=== PATIENT | female | born 1985 | race African-American/Black ===

== ENCOUNTER 2016-12-22 15:40 | Emergency (ER) | payer OTHER ==
[2016-12-22 15:45] VITALS: BP 122/70; BMI 32.9
== END 2016-12-22 22:09 | disposition left against medical advice (07) ==
LOC: ER 15:58
DX: G43.909 Migraine, unspecified, not intractable, without status migrainosus (principal)
CPT/HCPCS: 99281

== ENCOUNTER 2017-01-02 18:43 | Emergency (ER) | payer OTHER ==
[2017-01-02 18:56] VITALS: BP 118/66; BMI 34.7
[2017-01-02] MEDS ORDERED: DEMEROL INJ IM ONE (19:46)
[2017-01-02] MEDS ORDERED: PHENERGAN INJ 25 MG IM ONE (19:46)
--- NOTE | 2017-01-02 19:48 | DR.GENAD ---
HPI - PCP Primary Care Physician: chago - HPI Comment HPI Comment: HAVE HEADACHE DIADNOSE MIGRAINE. GOT WORSE TODAY. NUMBNESS HANDS AND LOWER EXTREMITY WEAKNESS REPORTED. NO FEVER. DENIES SINUS CONGESTION. - Complaint/Symptoms Chief Complaint Doctors Comments: HEADACHE WITH NAUSEA AND WEAKNESS. 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 negative: Chills, Fever Eyes: Photophobia. negative: Eye Pain, Discharge ENTM: No Symptoms Reported. negative: Ear Pain, Nose Discharge, Nose Congestion , Throat Pain Respiratoy: No Symptoms Reported. negative: Productive Cough, Non-Productive Cough, Short of Breath, Wheezing, Hemoptysis Cardiovascular: No Symptoms Reported. negative: Chest Pain Gastrointestinal/Abdominal: Nausea. negative: Abdominal Pain, Diarrhea, Vomiting Genitourinary: No Symptoms Reported. negative: Dysuria, Frequency, Hematuria Neurological: Headache, Numbness (HANDS), Weakness, Dizziness Musculoskeletal: Muscle Pain Integumentary: No Symptoms Reported Hematologic/Lymphatic: No Symptoms Reported Endocrine: No Symptoms Reported All Other Systems: Reviewed and Negative PE - Vital Signs Vitals: Temperature 99.1 F Pulse Rate 97 Respiratory Rate 18 Blood Pressure [Right Arm] 115/75 Blood Pressure 118/66 O2 Sat by Pulse Oximetry 100 - General Limitations: No Limitations General Appearance: Alert - Head Head Exam: Normal Inspection - Eyes Eye exam: Normal Appearance - ENT ENT Exam: Normal External Ear Exam External Ear Exam: Normal External Inspection TM/Canal Exam: Bilateral Normal Nose Exam: Normal Nose Exam Mouth Exam: Normal Inspection Throat Exam: Normal Inspection - Neck Neck Exam: Normal Inspection - Chest Chest Inspection: Symmetric Chest Wall Rise - Respiratory Respiratory Exam: Normal Lung Sounds Bilat Respiratory Exam: Bilateral Clear to Auscultation - Cardiovascular Cardiovascular Exam: Regular Rate, Normal Rhythm, Normal Heart Sounds - Abdominal Exam Abdominal Exam: Normal Bowel Sounds, Soft. negative: Tenderness - Extremities Extremities Exam: Normal Inspection - Back Back Exam: Normal Inspection - Neurologic Neurological Exam: Alert, Oriented X3, CN II-XII Intact, Reflexes Normal. negative: Motor Sensory Deficit - Psychiatric Psychiatric Exam: Normal Affect, Normal Mood - Skin Skin Exam: Normal Color MDM - Additional Information Additional Information Obtained From: Family - Differential Diagnosis Differential Diagnosis: MIGRAINE HEADACHE, CVA, SINUSITIS Course - Treatment Treatment: SEE ORDERS. MED FOR PAIN IN ED. SLIGHT IMPROVEMENT OF HEADACHE. - Education/Counseling Education/Counseling: Patient, Family, Education Educated On: Treatment, Diagnosis, Needs for Follow Up ROR - Labs Reviewed Laboratory Results Reviewed?: Yes Result Diagrams: 01/02/17 19:50 01/02/17 19:50 Laboratory: WBC 8.3 X10^3/uL (3.6-10.0) 01/02/17 19:50 RBC 4.90 X10^6/uL (3.5-5.4) 01/02/17 19:50 Hgb 14.7 g/dL (12.0-16.0) 01/02/17 19:50 Hct 42.8 % (36.0-47.0) 01/02/17 19:50 MCV 87.3 fL (80.0-100.0) 01/02/17 19:50 MCH 29.9 pg (27.0-34.0) 01/02/17 19:50 MCHC 34.2 g/dL (33.0-35.0) 01/02/17 19:50 RDW 13.7 % (11.6-16.5) 01/02/17 19:50 Plt Count 210 X10^3/uL (150.0-450.0) 01/02/17 19:50 MPV 8.6 fL (7.4-11.0) 01/02/17 19:50 Neut % 66.2 % (42.0-75.0) 01/02/17 19:50 Lymph % 23.4 % (21.0-51.0) 01/02/17 19:50 [place] % 6.9 % (0.0-13.0) 01/02/17 19:50 Eos % 3.1 % (0.9-2.9) H 01/02/17 19:50 Baso % 0.4 % (0.2-1.0) 01/02/17 19:50 Neut # 5.5 x10^3/uL (2.2-4.8) H 01/02/17 19:50 Lymph # 1.9 X10^3/uL (1.3-2.9) 01/02/17 19:50 [place] # 0.6 x10^3/uL (0.3-0.8) 01/02/17 19:50 Eos # 0.3 x10^3/uL (0.0-0.2) H 01/02/17 19:50 Baso # 0.0 X10^3/uL (0.0-0.1) 01/02/17 19:50 Absolute Nucleated RBC 0.0 /100WBC 01/02/17 19:50 Sodium 140 mmol/L (136-145) 01/02/17 19:50 Corrected Sodium TNP 01/02/17 19:50 Potassium 3.6 mmol/L (3.5-5.1) 01/02/17 19:50 Chloride 103 mmol/L (98-107) 01/02/17 19:50 Carbon Dioxide 28.6 mmol/L (21-32) 01/02/17 19:50 BUN 12 mg/dL (7-18) 01/02/17 19:50 Creatinine 1.04 mg/dL (0.55-1.02) H 01/02/17 19:50 Est GFR (MDRD) Af Amer > 60 (>60) 01/02/17 19:50 Est GFR (MDRD) Non-Af > 60 (>60) 01/02/17 19:50 Glucose 95 mg/dL (65-99) 01/02/17 19:50 Calcium 9.5 mg/dL (8.5-10.1) 01/02/17 19:50 Corrected Calcium TNP 01/02/17 19:50 Total Bilirubin 0.20 mg/dL (0.2-1.0) 01/02/17 19:50 AST 14 Units/L (15-37) L 01/02/17 19:50 ALT 20 Units/L (12-78) 01/02/17 19:50 Alkaline Phosphatase 85 Units/L (46-116) 01/02/17 19:50 Total Protein 8.7 g/dL (6.4-8.2) H 01/02/17 19:50 Albumin 4.0 g/dL (3.4-5.0) 01/02/17 19:50 Globulin 4.7 g/dL (2.5-4.5) H 01/02/17 19:50 Albumin/Globulin Ratio 0.9 Ratio (1.1-2.1) L 01/02/17 19:50 - XRAY XRAY Interpreted by: Radiologist XRAY Findings: REPORT DISCUSS WITH PATIENT. - Diagnosis Discharge Problem: Migraine headache Qualifiers: Migraine type: unspecified Status migrainosus presence: with status migrainosus Intractability: intractable Qualified Code(s): G43.911 - Migraine, unspecified, intractable, with status migrainosus Sinusitis Qualifiers: Sinusitis location: ethmoidal Chronicity: acute Recurrence: not specified as recurrent Qualified Code(s): J01.20 - Acute ethmoidal sinusitis, unspecified - Discharge Plan Disposition: 01 HOME, SELF-CARE Condition: Stable Prescriptions: Amoxicillin [Amoxil 875 mg] 875 mg PO BID #20 tab [id number] [Fioricet Tab] 1 tab PO Q8H PRN #20 tab PRN Reason: Migraine Headache Promethazine HCl [PHENERGAN TAB 25 MG *] 25 mg PO Q8H PRN #12 tab PRN Reason: Nausea/Vomiting - Follow ups/Referrals Follow ups/Referrals: ESVIN CHERRY [Primary Care Provider] - 3 days - Instructions Instructions: Migraine Headache, Sinusitis, Adult Additional Instructions: RETURN TO ED IF WORSE.
[2017-01-02] MEDS ORDERED: DEMEROL INJ ONE (19:53)
[2017-01-02] MEDS ORDERED: PHENERGAN INJ 25 MG ONE (19:53)
[2017-01-02 20:00] LABS: BASOPHILS % (AUTO) 0.4 % (0.2-1.0); EOSINOPHILS # (AUTO) 0.3 x10^3/uL (0.0-0.2); EOSINOPHILS % (AUTO) 3.1 % (0.9-2.9); HEMATOCRIT 42.8 % (36.0-47.0); HEMOGLOBIN 14.7 g/dL (12.0-16.0); LYMPHOCYTES # (AUTO) 1.9 X10^3/uL (1.3-2.9); LYMPHOCYTES % (AUTO) 23.4 % (21.0-51.0); MEAN CORPUSCULAR HEMOGLOBIN 29.9 pg (27.0-34.0); MEAN CORPUSCULAR HGB CONC 34.2 g/dL (33.0-35.0); MEAN CORPUSCULAR VOLUME 87.3 fL (80.0-100.0); MEAN PLATELET VOLUME 8.6 fL (7.4-11.0); MONOCYTES # (AUTO) 0.6 x10^3/uL (0.3-0.8); MONOCYTES % (AUTO) 6.9 % (0.0-13.0); NEUTROPHILS # (AUTO) 5.5 x10^3/uL (2.2-4.8); NEUTROPHILS % (AUTO) 66.2 % (42.0-75.0); PLATELET COUNT 210 X10^3/uL (150.0-450.0); RED CELL DISTRIBUTION WIDTH 13.7 % (11.6-16.5); WHITE BLOOD COUNT 8.3 X10^3/uL (3.6-10.0)
[2017-01-02 20:16] LABS: ALANINE AMINOTRANSFERASE 20 Units/L (12-78); ALKALINE PHOSPHATASE 85 Units/L (46-116); ASPARTATE AMINO TRANSFERASE 14 Units/L (15-37); BLOOD UREA NITROGEN 12 mg/dL (7-18); CALCIUM 9.5 mg/dL (8.5-10.1); CARBON DIOXIDE 28.6 mmol/L (21-32); CHLORIDE 103 mmol/L (98-107); CREATININE 1.04 mg/dL (0.55-1.02); GLUCOSE 95 mg/dL (65-99); SODIUM 140 mmol/L (136-145); TOTAL PROTEIN 8.7 g/dL (6.4-8.2); eGFR BLACK RACES > 60 (>60); eGFR NON BLACK RACES > 60 (>60)
--- NOTE | 2017-01-02 20:45 | CT ---
HISTORY: Headache x2 months Study: CT brain without contrast Comparison: None Technique: Multiple axial images of the brain were obtained from the skull base to the vertex witho ut administration of IV contrast. AEC was utilized. Findings: No acute intraparenchymal hemorrhage or mass can be identified. No extra-axial fluid collections ar e seen. No alteration in the attenuation of the brain parenchyma can be identified to suggest acute or subacute ischemic change. The ventricular system is symmetric and nondilated. There is mild to moderate chronic ethmoid sinusitis. IMPRESSION: No acute intracranial process can be identified. Mild to moderate chronic ethmoid sinusitis Reported By:
== END 2017-01-02 21:11 | disposition home or self-care (01) ==
LOC: ER 18:46
DX: G43.911 Migraine, unspecified, intractable, with status migrainosus (principal); J01.80 Other acute sinusitis
CPT/HCPCS: 36415; 70450; 80053; 85025; 96372; 99283; J2175; J2550

== ENCOUNTER 2017-06-17 09:07 | Emergency (ER) | payer OTHER ==
[2017-06-17 09:14] VITALS: BP 114/70; BMI 34.9
[2017-06-17] MEDS ORDERED: TORADOL 60 MG VIAL IM ONE (09:59)
--- NOTE | 2017-06-17 10:06 | DR.GENAD ---
HPI - PCP Primary Care Physician: DR. CHERRY - Complaint/Symptoms Chief Complaint Doctors Comments: Patient states she has been having pain in her knees, ankle and feet for several weeks. 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 She was told she had arthritis and she does not know the type of arthritis they said she had. They told her to take Alieve and Motrin. states she has been taking Motrin 800mg without improvement. she denies chest pain or SOB. States she is a patient of Dr. Cherry but cannot see him until after the holidays because she is in training and cannot get away. Chief Complaint:: PATIENT STATED THAT SHE IS HAVING JOINT PAIN. PATIENT STATED THAT THIS HAS BEEN GOING ON FOR A COUPLE OF WEEKS IN THE KNEES AND ANKLE. 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 - Family History History of Family Medical Conditions: No - Social History Does patient currently use any type of tobacco product: No Have you used tobacco products in the last 12 months: No Type of Tobacco Use: None Does any household member use tobacco: No Alcohol Use: None Do you use any recreational Drugs:: No Lives With: Family Lives Where: Home - infectious screening In the last 2 months have you had wt loss of >10#?: NO Have you had fever, night sweats or hemotysis?: No Have you traveled outside the country in the last 6 months?: No Isolation: Standard ROS - Review of Systems Constitutional: No Symptoms Reported. negative: See HPI, Chills, Diaphoresis, Fever, Malaise, Weakness, Irritable, Fatigue, Loss of Appetite, Other Eyes: No Symptoms Reported. negative: See HPI, Eye Pain, Blurred Vision, Tearing, Discharge, Photophobia, Diplopia, Other ENTM: No Symptoms Reported. negative: See HPI, Ear Pain, Ear Discharge, Pulling on Ears, Hearing Loss, Nose Pain, Nose Discharge, Epistaxis, Nose Congestion, Mouth Pain, Mouth Swelling, Loose Teeth, Drooling, Throat Pain, Throat Swelling, Ear Foreign Body Respiratoy: No Symptoms Reported. negative: See HPI, Productive Cough, Non- Productive Cough, Moist Cough, Dry Cough, Hacking Cough, Barking Cough, Brassy Cough, Orthopnea, Short of Breath, Stridor, Wheezing, Hemoptysis, Other Cardiovascular: No Symptoms Reported. negative: See HPI, Chest Pain, Edema, Palpitations, Syncope, Cyanosis, Skin Mottling, Other Gastrointestinal/Abdominal: No Symptoms Reported. negative: See HPI, Abdominal Pain, Constipation, Diarrhea, Nausea, Vomiting, Food Intolerance, Other Genitourinary: No Symptoms Reported. negative: See HPI, Discharge, Dysuria, Frequency, Hematuria, Pain, Bleeding, Other Neurological: No Symptoms Reported, Problems Walking. negative: See HPI, Anxiety, Depressed, Emotional Problems, Headache, Numbness, Paresthesia, Pre- existing Deficit, Seizure, Tingling, Tremors, Weakness, Dizziness, Speech Problem, Other Musculoskeletal: No Symptoms Reported, Left, Knee, Ankle Integumentary: No Symptoms Reported. negative: See HPI, Change in Color, Change in Hair/Nails, Dryness, Lesions, Lumps, Rash, Itching, Wound, Bruises, Juandice, Other Hematologic/Lymphatic: No Symptoms Reported. negative: See HPI, Anemia, Blood Clots, Easy Bleeding, Easy Bruising, Swollen Glands, Lymphadenopathy, Other Endocrine: No Symptoms Reported Psychiatric: No Symptoms Reported. negative: See HPI, Anxiety, Depression, Hallucinations, Excessive crying, Suicidal, Other PE - Vital Signs Vitals: Temperature 98.4 F Pulse Rate 103 Respiratory Rate 20 Blood Pressure [Right Arm] 115/75 Blood Pressure 114/70 O2 Sat by Pulse Oximetry 97 - General Limitations: No Limitations General Appearance: Alert, In Distress (mild) - Head Head Exam: Normal Inspection, Atraumatic, Normocephalic - Eyes Eye exam: Normal Appearance, PERRL, EOMI. negative: Scleral Icterus, Conjunctival Injection, Nystagmus, Miosis, Mydrasis, Periorbital Swelling, Periorbital Tenderness, Other - ENT ENT Exam: Normal Exam, Normal Oropharynx, Normal External Ear Exam, Mucous Membranes Moist, TM's Normal Bilaterally External Ear Exam: Normal External Inspection TM/Canal Exam: Bilateral Normal Nose Exam: Normal Nose Exam Mouth Exam: Normal Inspection. negative: Drooling, Trismus, Lip Swelling, Tongue Elevation, Tongue Swelling, Laceration, Other Throat Exam: Normal Inspection - Neck Neck Exam: Normal Inspection, Full ROM, Trachea Midline. negative: Tenderness, Meningismus, Lymphadenopathy, Thyromegaly, Other - Chest Chest Inspection: Normal Inspection, Symmetric Chest Wall Rise. negative: Tenderness, Rash, Abscess, Other - Respiratory Respiratory Exam: Normal Lung Sounds Bilat Respiratory Exam: Bilateral Clear to Auscultation - Cardiovascular Cardiovascular Exam: Regular Rate, Normal Rhythm, Normal Heart Sounds. negative : Bradycardia, Tachycardia, Irregular Rhythm, Systolic Murmur, Diastolic Murmur , Rubs, Gallop, Clicks, JVD, +S1, +S2, +S3, +S4, Other - Abdominal Exam Abdominal Exam: Normal Inspection, Normal Bowel Sounds, Soft. negative: Distention, Tenderness, Guarding, Rebound, Rigidity, Dimnished Bowel Sounds, Hyperactive Bowel Sounds, Hypoactive Bowel Sounds, Organomegaly, Trauma, Incision, Ascites, Mass, Bruit, Pulsatile Mass, Hernia, Other Abdominal Tenderness: negative: RUQ, RLQ, LUQ, LLQ, Epigastrium, Suprapubic, Diffuse, Mild, Moderate, Severe, Other - Extremities Extremities Exam: Normal Inspection, Full ROM, Tenderness (left ankle tender; slight swelling; no erythema; crepitus of the knees; no fluid; right shoulder with popping on elevation; no swelling or displacement), Normal Capillary Refill. negative: Edema, Joint Swelling, Calf Tenderness, Other - Back Back Exam: Normal Inspection, Full ROM. negative: Tenderness, (R) CVA Tenderness, (L) CVA Tenderness, Muscle Spasm, Paraspinal Tenderness, Vertebral Tenderness, Rashes, (R) Sciatic Notch Tenderness, (L) Sciatic Notch Tendern, (R ) Straight Leg Raise, (L) Straight Leg Raise, Other - Neurologic Neurological Exam: Alert, Oriented X3, CN II-XII Intact, Reflexes Normal. negative: Normal Gait (gait not tested) - Psychiatric Psychiatric Exam: Normal Affect, Normal Mood. negative: Depressed, Agitated, Anxious, Flat Affect, Manic, Homicidal Ideation, Suicidal Ideation, Other - Skin Skin Exam: Warm, Dry, Intact, Normal Color. negative: Rash, Cyanosis, Diaphoresis, Erythema, Pallor, Mottled, Other ROR - Labs Reviewed Laboratory Results Reviewed?: Yes (all labs and x-ray results reviewed and discussed with patient) Result Diagrams: 06/17/17 10:07 06/17/17 10:07 Laboratory: WBC 7.8 X10^3/uL (3.6-10.0) 06/17/17 10:07 RBC 4.13 X10^6/uL (3.5-5.4) 06/17/17 10:07 Hgb 12.3 g/dL (12.0-16.0) 06/17/17 10:07 Hct 36.3 % (36.0-47.0) 06/17/17 10:07 MCV 87.8 fL (80.0-100.0) 06/17/17 10:07 MCH 29.8 pg (27.0-34.0) 06/17/17 10:07 MCHC 33.9 g/dL (33.0-35.0) 06/17/17 10:07 RDW 14.3 % (11.6-16.5) 06/17/17 10:07 Plt Count 208 X10^3/uL (150.0-450.0) 06/17/17 10:07 MPV 8.3 fL (7.4-11.0) 06/17/17 10:07 Neut % 66.1 % (42.0-75.0) 06/17/17 10:07 Lymph % 24.0 % (21.0-51.0) 06/17/17 10:07 [place] % 6.7 % (0.0-13.0) 06/17/17 10:07 Eos % 2.6 % (0.9-2.9) 06/17/17 10:07 Baso % 0.6 % (0.2-1.0) 06/17/17 10:07 Neut # 5.2 x10^3/uL (2.2-4.8) H 06/17/17 10:07 Lymph # 1.9 X10^3/uL (1.3-2.9) 06/17/17 10:07 [place] # 0.5 x10^3/uL (0.3-0.8) 06/17/17 10:07 Eos # 0.2 x10^3/uL (0.0-0.2) 06/17/17 10:07 Baso # 0.1 X10^3/uL (0.0-0.1) 06/17/17 10:07 Absolute Nucleated RBC 0.0 /100WBC 06/17/17 10:07 D-Dimer 527 ng/mL (0-400) H* 06/17/17 10:07 Sodium 139 mmol/L (136-145) 06/17/17 10:07 Corrected Sodium TNP 06/17/17 10:07 Potassium 4.4 mmol/L (3.5-5.1) 06/17/17 10:07 Chloride 104 mmol/L (98-107) 06/17/17 10:07 Carbon Dioxide 27.0 mmol/L (21-32) 06/17/17 10:07 BUN 7 mg/dL (7-18) 06/17/17 10:07 Creatinine 0.71 mg/dL (0.55-1.02) 06/17/17 10:07 Est GFR (MDRD) Af Amer > 60 (>60) 06/17/17 10:07 Est GFR (MDRD) Non-Af > 60 (>60) 06/17/17 10:07 Glucose 88 mg/dL (65-99) 06/17/17 10:07 Uric Acid 4.8 mg/dL (2.6-6.0) 06/17/17 10:07 Calcium 9.5 mg/dL (8.5-10.1) 06/17/17 10:07 Creatine Kinase 70 Units/L (26-192) 06/17/17 10:07 HCG, Qual Negative <10 mIU/mL 06/17/17 10:07 Rheumatoid Factor Negative (NEGATIVE) 06/17/17 10:07 - XRAY XRAY Interpreted by: Radiologist (US doppler legs: Negative for DVT) - Diagnosis Discharge Problem: Musculoskeletal pain of extremity Arthralgia of ankle Qualifiers: Laterality: bilateral Qualified Code(s): M25.571 - Pain in right ankle and joints of right foot; M25.572 - Pain in left ankle and joints of left foot; M25.572 - Pain in left ankle and joints of left foot Degenerative arthritis Qualifiers: Osteoarthritis location: foot - Discharge Plan Disposition: 01 HOME, SELF-CARE Condition: Stable Prescriptions: Ibuprofen [MOTRIN TAB 800 MG *] 800 mg PO Q8H PRN #40 tab PRN Reason: Pain/Inflammation - Follow ups/Referrals Follow ups/Referrals: ESVIN CHERRY [Primary Care Provider] - 3 days SURENDRA PARKER [STAFF PHYSICIAN] - 3 days - Instructions Instructions: Knee Pain, Musculoskeletal Pain
[2017-06-17] MEDS ORDERED: TORADOL 60 MG VIAL ONE (10:07)
[2017-06-17 10:12] LABS: BASOPHILS # (AUTO) 0.1 X10^3/uL (0.0-0.1); BASOPHILS % (AUTO) 0.6 % (0.2-1.0); EOSINOPHILS # (AUTO) 0.2 x10^3/uL (0.0-0.2); EOSINOPHILS % (AUTO) 2.6 % (0.9-2.9); HEMATOCRIT 36.3 % (36.0-47.0); HEMOGLOBIN 12.3 g/dL (12.0-16.0); LYMPHOCYTES # (AUTO) 1.9 X10^3/uL (1.3-2.9); MEAN CORPUSCULAR HEMOGLOBIN 29.8 pg (27.0-34.0); MEAN CORPUSCULAR HGB CONC 33.9 g/dL (33.0-35.0); MEAN CORPUSCULAR VOLUME 87.8 fL (80.0-100.0); MEAN PLATELET VOLUME 8.3 fL (7.4-11.0); MONOCYTES # (AUTO) 0.5 x10^3/uL (0.3-0.8); MONOCYTES % (AUTO) 6.7 % (0.0-13.0); NEUTROPHILS # (AUTO) 5.2 x10^3/uL (2.2-4.8); NEUTROPHILS % (AUTO) 66.1 % (42.0-75.0); PLATELET COUNT 208 X10^3/uL (150.0-450.0); RED BLOOD COUNT 4.13 X10^6/uL (3.5-5.4); RED CELL DISTRIBUTION WIDTH 14.3 % (11.6-16.5); WHITE BLOOD COUNT 7.8 X10^3/uL (3.6-10.0)
[2017-06-17 10:27] LABS: SERUM PREGNANCY TEST, QUAL NEGATIVE <10 mIU/mL
[2017-06-17 10:31] LABS: BLOOD UREA NITROGEN 7 mg/dL (7-18); CALCIUM 9.5 mg/dL (8.5-10.1); CHLORIDE 104 mmol/L (98-107); CREATINE KINASE 70 Units/L (26-192); CREATININE 0.71 mg/dL (0.55-1.02); SODIUM 139 mmol/L (136-145); URIC ACID 4.8 mg/dL (2.6-6.0); eGFR BLACK RACES > 60 (>60); eGFR NON BLACK RACES > 60 (>60)
[2017-06-17 10:53] LABS: RHEUMATOID FACTOR NEGATIVE (NEGATIVE)
--- NOTE | 2017-06-17 13:57 | VAS ---
HISTORY: 32-year-old female with bilateral leg pain. Study: Bilateral lower extremity venous duplex Doppler. Comparison: None. TECHNIQUE: Multiple guthrie scale and color flow Doppler images of the deep venous system were obtained of the right and left lower extremity. FINDINGS: The deep venous system of the right and left lower extremities were evaluated from the level of the c ommon femoral vein through the popliteal vein. Normal color flow and augmentation can be observed. In addition, normal compression is seen throughout the deep venous system. IMPRESSION: 1. Negative for DVT. Reported By:
== END 2017-06-17 14:31 | disposition home or self-care (01) ==
LOC: ER 09:18
DX: M79.1 Myalgia (principal); M25.571 Pain in right ankle and joints of right foot; M25.572 Pain in left ankle and joints of left foot; M19.079 Primary osteoarthritis, unspecified ankle and foot
CPT/HCPCS: 36415; 80048; 82550; 84550; 84703; 85025; 85378; 86430; 93970; 96372; 99282; 99283; J1885

== ENCOUNTER 2023-03-07 19:51 | Observation (INO) ==
[~2023-03-07 19:51] MED LIST: SUPRANE ONE
[2023-03-07 19:57] VITALS: BMI 36.5
[2023-03-07 20:13] LABS: BILIRUBIN,URINE 1+ (NEGATIVE); BLOOD/HEMOGLOBIN,URINE 3+ (NEGATIVE); GLUCOSE, URINE NEGATIVE (NEGATIVE); KETONES,URINE 1+ (NEGATIVE); LEUKOCYTE ESTERASE ,URINE 1+ (NEGATIVE); NITRITES,URINE NEGATIVE (NEGATIVE); PROTEIN,URINE 2+ (NEGATIVE); UROBILINOGEN,URINE 1+ (NORMAL)
--- NOTE | 2023-03-07 20:15 | ED.ABDFE ---
HPI Time Seen Time Seen by Provider: 03/07/23 20:14 PCP Primary Care Physician: JO ANN HPI Comment HPI Comment: 38 y/o with persistent epigastric pain radiating to rt back x 1-2 days; getting worse; she's thrown up several times with last earlier today; s he's eaten since then and has been able to keep it down; last bm earlier today and wnl; no dysuria, hematuria or frequency; she's had partial hysterectomy; no alcohol or tylenol use; no hx liver or pancreatic problems; no one else is sick; no fever, chills Complaint Chief Complaint:: Pt c/o abd pain that radiates into her back. She also reports n/v. COVID-19 Coronavirus risk:travel/contact w/high risk person: No Has patient experienced Coronavirus symptoms: No Source History Provided: Patient Mode of arrival Mode of Arrival: Ambulatory Timing Onset of Chief Complaint: 03/05/23 PMH PMH Past Medical History: No Past Medical History: Anxiety, Depression and Migraines Past Surgical History: Yes Surgical History: Hysterectomy and Ortho Surgery Family History History of Family Medical Conditions: No Family Medical History: Diabetes Mellitus and Hypertension Social History Does patient currently use any type of tobacco product: No Have you used tobacco products in the last 12 months: No Type of Tobacco Use: None Does any household member use tobacco: No Alcohol Use: None Do you use any recreational Drugs:: No Lives With: Family Lives Where: Home Travel Risk Coronavirus risk:travel/contact w/high risk person: No Has patient experienced Coronavirus symptoms: No Infectious screening In the last 2 months have you had wt loss of >10#?: NO Have you had fever, night sweats or hemotysis?: No Have you traveled outside the country in the last 6 months?: No Isolation: Standard ROS Review of Systems Constitutional: No Symptoms Reported Eyes: No Symptoms Reported ENTM: No Symptoms Reported Respiratoy: No Symptoms Reported Cardiovascular: No Symptoms Reported Genitourinary: No Symptoms Reported Neurological: No Symptoms Reported Musculoskeletal: No Symptoms Reported Integumentary: No Symptoms Reported Hematologic/Lymphatic: No Symptoms Reported Endocrine: No Symptoms Reported Psychiatric: Anxiety PE Vital Signs Vitals: Vital Signs Temperature 98.3 F Pulse Rate 113 Pulse Rate 129 Respiratory Rate 20 Respiratory Rate 20 Respiratory Rate 20 Respiratory Rate 18 Blood Pressure 119/68 Blood Pressure 110/72 O2 Sat by Pulse Oximetry 99 O2 Sat by Pulse Oximetry 98 General Limitations: No Limitations and Language Barrier General Appearance: Alert and In No Apparent Distress Head Head Exam: Normal Inspection Eyes Eye exam: Normal Appearance ENT ENT Exam: Normal Exam Neck Neck Exam: Normal Inspection Chest Chest Inspection: Normal Inspection Respiratory Respiratory Exam: Normal Lung Sounds Bilat Cardiovascular Cardiovascular Exam: Regular Rate and Normal Rhythm Abdominal Exam Abdominal Exam: Soft, Distention and Dimnished Bowel Sounds Abdominal Tenderness: Diffuse (more in epigastrium with rt cva tenderness) and Moderate Rectal Rectal Exam: Deferred Back Back Exam: Normal Inspection Extremeties Extremities Exam: Normal Inspection Neurologic Neurological Exam: Alert and Oriented X3 Psychiatric Psychiatric Exam: Normal Affect and Normal Mood Skin Skin Exam: Warm, Dry and Intact COURSE Reevaluation 1st: Improved (results and need for admission d/w pt) Consultation Call Returned: 22:09 (Dr Barajas accepts admission.) ROR Labs Reviewed 03/07/23 20:34 03/07/23 20:34 Laboratory: WBC 10.8 X10^3/uL (3.6-10.0) H 03/07/23 20:34 RBC 4.62 X10^6/uL (3.5-5.4) 03/07/23 20:34 Hgb 13.2 g/dL (12.0-16.0) 03/07/23 20:34 Hct 40.0 % (36.0-47.0) 03/07/23 20:34 MCV 86.5 fL (80.0-100.0) 03/07/23 20:34 MCH 28.6 pg (27.0-34.0) 03/07/23 20:34 MCHC 33.1 g/dL (33.0-35.0) 03/07/23 20:34 RDW 15.1 % (11.6-16.5) 03/07/23 20:34 Plt Count 240 X10^3/uL (150.0-450.0) 03/07/23 20:34 MPV 9.6 fL (7.4-11.0) 03/07/23 20:34 Neut % (Auto) 67.4 % (42.0-75.0) 03/07/23 20:34 Lymph % (Auto) 19.9 % (21.0-51.0) L 03/07/23 20:34 [place] % (Auto) 5.9 % (0.0-13.0) 03/07/23 20:34 Eos % (Auto) 6.0 % (0.9-2.9) H 03/07/23 20:34 Baso % (Auto) 0.8 % (0.2-1.0) 03/07/23 20:34 Neut # (Auto) 7.3 x10^3/uL (2.2-4.8) H 03/07/23 20:34 Lymph # (Auto) 2.2 X10^3/uL (1.3-2.9) 03/07/23 20:34 [place] # (Auto) 0.6 x10^3/uL (0.3-0.8) 03/07/23 20:34 Eos # (Auto) 0.6 x10^3/uL (0.0-0.2) H 03/07/23 20:34 Baso # (Auto) 0.1 X10^3/uL (0.0-0.1) 03/07/23 20:34 Absolute Nucleated RBC 0.0 /100WBC 03/07/23 20:34 Sodium 139 mmol/L (136-145) 03/07/23 20:34 Corrected Sodium 140 mmol/L (136-145) 03/07/23 20:34 Potassium 3.0 mmol/L (3.5-5.1) L 03/07/23 20:34 Chloride 102 mmol/L (98-107) 03/07/23 20:34 Carbon Dioxide 28.6 mmol/L (21-32) 03/07/23 20:34 BUN 11 mg/dL (7-18) 03/07/23 20:34 Creatinine 1.20 mg/dL (0.55-1.02) H 03/07/23 20:34 Est GFR (MDRD) Af Amer > 60 (>60) 03/07/23 20:34 Est GFR (MDRD) Non-Af 53 (>60) L 03/07/23 20:34 Glucose 135 mg/dL (65-99) H 03/07/23 20:34 Calcium 8.3 mg/dL (8.5-10.1) L 03/07/23 20:34 Corrected Calcium TNP 03/07/23 20:34 Total Bilirubin 0.30 mg/dL (0.2-1.0) 03/07/23 20:34 AST 10 Units/L (15-37) L 03/07/23 20:34 ALT 14 Units/L (12-78) 03/07/23 20:34 Alkaline Phosphatase 81 Units/L (46-116) 03/07/23 20:34 Total Protein 7.3 g/dL (6.4-8.2) 03/07/23 20:34 Albumin 3.5 g/dL (3.4-5.0) 03/07/23 20:34 Globulin 3.8 g/dL (2.5-4.5) 03/07/23 20:34 Albumin/Globulin Ratio 0.9 Ratio (1.1-2.1) L 03/07/23 20:34 Lipase 71 Units/L (73-393) L 03/07/23 20:34 Specimen Type Clean catch urine 03/07/23 20:01 Urine Color [place] (YELLOW) 03/07/23 20: Urine Appearance Hazy (CLEAR) 03/07/23 20: Urine pH 5.0 (5.0 - 8.0) 03/07/23 20:01 Ur Specific [place] 1.025 (1.000-1.030) 03/07/23 20:01 Urine Protein 2+ (NEGATIVE) 03/07/23 20: Urine Glucose (UA) Negative (NEGATIVE) 03/07/23 20:01 Urine Ketones 1+ (NEGATIVE) 03/07/23 20: Urine Blood 3+ (NEGATIVE) 03/07/23 20: Urine Nitrite Negative (NEGATIVE) 03/07/23 20:01 Urine Bilirubin 1+ (NEGATIVE) 03/07/23 20:01 Urine Urobilinogen 1+ (NORMAL) 03/07/23 20:01 Ur Leukocyte Esterase 1+ (NEGATIVE) 03/07/23 20: Urine RBC 5-10 /HPF (0-3) A 03/07/23 20:01 Urine WBC 3-5 /HPF (0-5) 03/07/23 20:01 Ur Squamous Epith Cells Numerous /HPF (NEGATIVE) 03/07/23 20: Amorphous Sediment 1+ /HPF (NEGATIVE) 03/07/23 20:01 Urine Bacteria 1+ /HPF (NEGATIVE) 03/07/23 20:01 Urine Mucus Moderate /HPF (NEGATIVE) 03/07/23 20:01 Ur Culture Indicated? No/not indicated 03/07/23 20:01 XRAY X-ray Results: ct abd/pelvis: 1. Cholelithiasis, with suggestion of a 1.5 cm calculus in the gallbladder neck region (sagittal image 44), in keeping with sequela of chronic cholecystitis. 2. Gallbladder dilatation, severe gallbladder wall thickening, and pericholecystic cystic stranding in keeping with acute cholecystitis in the appropriate clinical setting. Axial image 26?45; coronal image 18?29; sagittal image 41?55. 3. Small amount of complex free fluid is seen in the distal dependent pelvis, of uncertain etiology and clinical significance; possible sequela of cholecystitis. Axial image 73?82. 4. No evidence for renal stone disease or obstructive uropathy. 5. No evidence for acute appendicitis, bowel herniation/obstruction, colitis or diverticulitis seen. 6. Status post hysterectomy. 7. Thickened appearance of the vaginal wall and vaginal cuff; nonspecific finding; rule out vaginitis. Axial image 78?94; sagittal image 31?38. 8. No free air, mass lesions, or lymphadenopathy seen. Opioid Opioid Risk Tool Age (Dayo box if 16-45): Yes History of Preadolescent Sexual Abuse: No Total: 1 Total Score Risk Category: Low Risk Copyright: Rocky MCHUGH predicting aberrant behaviors Discharge Plan Diagnosis Discharge Problem: Acute cholecystitis, Acute hypokalemia, Right nephrolithiasis Discharge Plan Patient Disposition: 09 ADMITTED INPATIENT Condition: Stable Prescriptions: No Action olanzapine 5 mg tablet 1 tab PO QPM montelukast 10 mg tablet 1 tab PO QDAY topiramate 200 mg tablet 1 tab PO BID azelastine 137 mcg (0.1 %) aerosol,spray 1 spray INTRANASAL DAILY Patient Comments: [NO ORIGINAL SIG] fluticasone propionate 50 mcg/actuation spray,suspension 1 ea INTRANASAL DAILY Patient Comments: [NO ORIGINAL SIG] hydroxyzine pamoate 25 mg capsule 1 cap PO TID escitalopram oxalate 20 mg tablet 1 tab PO QDAY ibuprofen 800 mg tablet 800 mg PO TID tramadol 50 mg tablet 50 mg PO BID PRN hydroxyzine pamoate 25 mg capsule 25 mg PO TID Health Concerns: Post Hospitalization: new medications and changes needed to prevent readmission or further decline. Pt educated and given instructions on all concerns. Plan of Treatment: Continue with present treatment and follow up plan. Pt is to keep follow up appointment as instructed and take medications as ordered. Follow ups/Referrals Follow ups/Referrals: ESVIN CHERRY [Primary Care Provider] - 3 days Instructions Instructions: Laparoscopic Cholecystectomy, Minimally Invasive Cholecystectomy, Care After, [id number], Cholecystitis, [id number]
[2023-03-07] MEDS ORDERED: NS 1,000 ML IV 1,000 ML IV ONE (20:19)
[2023-03-07] MEDS ORDERED: TORADOL 15 MG VIAL IVP ONE (20:19)
[2023-03-07] MEDS ORDERED: PROTONIX INJ 40 MG VIAL IVP STA (20:19)
[2023-03-07 20:23] LABS: APPEARANCE,URINE HAZY (CLEAR); BACTERIA,URINE 1+ /HPF (NEGATIVE); COLOR,URINE AMBER (YELLOW); SQUAMOUS EPITHELIAL CELL,UR NUMEROUS /HPF (NEGATIVE)
[2023-03-07] MEDS ORDERED: NS 1,000 ML IV 1,000 ML ONE (20:24)
[2023-03-07] MEDS ORDERED: TORADOL 15 MG VIAL ONE (20:24)
[2023-03-07] MEDS ORDERED: PROTONIX INJ 40 MG VIAL ONE (20:24)
[2023-03-07 20:41] LABS: MEAN CORPUSCULAR VOLUME 86.5 fL (80.0-100.0)
[2023-03-07 20:44] LABS: BASOPHILS # (AUTO) 0.1 X10^3/uL (0.0-0.1); BASOPHILS % (AUTO) 0.8 % (0.2-1.0); EOSINOPHILS # (AUTO) 0.6 x10^3/uL (0.0-0.2); HEMOGLOBIN 13.2 g/dL (12.0-16.0); LYMPHOCYTES # (AUTO) 2.2 X10^3/uL (1.3-2.9); LYMPHOCYTES % (AUTO) 19.9 % (21.0-51.0); MEAN CORPUSCULAR HEMOGLOBIN 28.6 pg (27.0-34.0); MEAN CORPUSCULAR HGB CONC 33.1 g/dL (33.0-35.0); MEAN PLATELET VOLUME 9.6 fL (7.4-11.0); MONOCYTES # (AUTO) 0.6 x10^3/uL (0.3-0.8); MONOCYTES % (AUTO) 5.9 % (0.0-13.0); NEUTROPHILS # (AUTO) 7.3 x10^3/uL (2.2-4.8); NEUTROPHILS % (AUTO) 67.4 % (42.0-75.0); PLATELET COUNT 240 X10^3/uL (150.0-450.0); RED BLOOD COUNT 4.62 X10^6/uL (3.5-5.4); RED CELL DISTRIBUTION WIDTH 15.1 % (11.6-16.5); WHITE BLOOD COUNT 10.8 X10^3/uL (3.6-10.0)
[2023-03-07 20:54] LABS: ALANINE AMINOTRANSFERASE 14 Units/L (12-78); ALBUMIN 3.5 g/dL (3.4-5.0); ALKALINE PHOSPHATASE 81 Units/L (46-116); ASPARTATE AMINO TRANSFERASE 10 Units/L (15-37); BLOOD UREA NITROGEN 11 mg/dL (7-18); CALCIUM 8.3 mg/dL (8.5-10.1); CARBON DIOXIDE 28.6 mmol/L (21-32); CHLORIDE 102 mmol/L (98-107); COR NA(FOR HYPERGLY) 140 mmol/L (136-145); GLUCOSE 135 mg/dL (65-99); LIPASE 71 Units/L (73-393); SODIUM 139 mmol/L (136-145); TOTAL PROTEIN 7.3 g/dL (6.4-8.2); eGFR NON BLACK RACES 53 (>60)
--- NOTE | 2023-03-07 21:14 | CT ---
EXAM: CT ABDOMEN AND PELVIS WITHOUT INTRAVENOUS CONTRASTHISTORY: Abdominal pain that radiates into her back.TECHNIQUE: Spiral axial CT images are obtained through the abdomen and pelvis without the administration of intravenous contrast. Additional coronal and sagittal reformatted images are reconstructed.DOSIMETRY: Total DLP 303 mGycm; CTDI 5.78 mGyCOMPARISON: None available.FINDINGS:BILIARY SYSTEM: There is evidence for cholelithiasis, with suggestion of a 1.5 cm calculus in the gallbladder neck region (sagittal image 44), in keeping with sequela of chronic cholecystitis. There is gallbladder dilatation, severe gallbladder wall thickening, and pericholecystic cystic stranding in keeping with acute cholecystitis in the appropriate clinical setting. Axial image 26?45; coronal image 18?29; sagittal image 41?55.GASTROINTESTINAL TRACT: There is no evidence for bowel herniation, bowel obstruction, colitis or diverticulitis. A normal-appearing appendix is seen.GENITOURINARY SYSTEM: There is an approximately 7 mm nonobstructing right upper pole renal calculus. The kidneys are otherwise unremarkable. There is no ureteral calculus or stigmata of obstructive uropathy. The urinary bladder is grossly unremarkable for a non-dedicated exam.CT ABDOMEN: The liver, spleen, pancreas, adrenal glands, aorta, and inferior vena cava are within normal limits for a noncontrast CT scan. There is no intra-abdominal or retroperitoneal lymphadenopathy, free fluid, or free air seen. No abdominal herniation is noted.CT PELVIS: Status post hysterectomy. There is thickened appearance of the vaginal wall and vaginal cuff; nonspecific finding; rule out vaginitis. A small amount of complex free fluid is seen in the distal dependent pelvis, of uncertain etiology and clinical significance; possible sequela of cholecystitis. Axial image 73?82. No pelvic sidewall or inguinal lymphadenopathy is seen. No inguinal herniation is noted. No free air is seen.BONES AND JOINTS: The visualized bony structures are within normal limits.LUNG BASES: The lung bases are clear.IMPRESSION:1. Cholelithiasis, with suggestion of a 1.5 cm calculus in the gallbladder neck region (sagittal image 44), in keeping with sequela of chronic cholecystitis.2. Gallbladder dilatation, severe gallbladder wall thickening, and pericholecystic cystic stranding in keeping with acute cholecystitis in the appropriate clinical setting. Axial image 26?45; coronal image 18?29; sagittal image 41?55.3. Small amount of complex free fluid is seen in the distal dependent pelvis, of uncertain etiology and clinical significance; possible sequela of cholecystitis. Axial image 73?82.4. No evidence for renal stone disease or obstructive uropathy.5. No evidence for acute appendicitis, bowel herniation/obstruction, colitis or diverticulitis seen.6. Status post hysterectomy.7. Thickened appearance of the vaginal wall and vaginal cuff; nonspecific finding; rule out vaginitis. Axial image 78?94; sagittal image 31?38.8. No free air, mass lesions, or lymphadenopathy seen.Electronically signed by: Arya Santos (Mar 07, 2023 21:12:29)
[2023-03-07] MEDS ORDERED: NS + KCL 20 MEQ/L 1,000 ML IV ONE (21:53)
[2023-03-07] MEDS ORDERED: ANCEF VIAL 1 GRAM ONE (21:53)
[2023-03-07] MEDS ORDERED: NS 100 ML IV 100 ML ONE (21:53)
[2023-03-07] MEDS ORDERED: MORPHINE SULFATE INJ 2 MG INJ ONE (22:01)
[2023-03-07] MEDS: MORPHINE SULFATE INJ 2 MG INJ IVP PRN (22:05)
[2023-03-07] MEDS: ANCEF VIAL 1 GRAM IVP SCH (22:06)
[2023-03-07] MEDS: NS + KCL 20 MEQ/L 1,000 ML IV SCH (22:06)
--- NOTE | 2023-03-07 22:20 | EKG ---
Test Reason : preop Blood Pressure : */* mmHG Vent. Rate : 79 BPM Atrial Rate : 79 BPM P-R Int : 148 ms QRS Dur : 78 ms QT Int : 356 ms P-R-T Axes : 5 -8 -16 degrees QTc Int : 408 ms Normal sinus rhythm Minimal voltage criteria for LVH, may be normal variant ( R in aVL ) Nonspecific T wave abnormality Abnormal ECG No previous ECGs available Confirmed by Manuel Haile ([id number]) on 03/08/2023 8:23:26 AM Referred By: Confirmed By: Manuel Haile
[2023-03-07] MEDS ORDERED: LEVAQUIN PREMIX IV 500 MG 500 MG/100 ML BAG IV ONE (22:25)
--- NOTE | 2023-03-07 22:31 | RAD ---
HISTORYABD PREOP Relevant Clinical InformationSTUDYCHEST, 1 [id number]/2023FINDINGSThe trachea is midline. The cardiac silhouette is mildly enlarged. There are per surgical changes in the right hilar region and mediastinum.. The lungs are clear without focal infiltrate or effusion. The bony thorax is unremarkable.IMPRESSIONMild cardiomegalyNo active cardiopulmonary disease.Electronically signed by: Luis Aguilar (Mar 07, 2023 22:22:43)
[2023-03-07] MEDS: LEVAQUIN PREMIX IV 500 MG 500 MG/100 ML BAG IV SCH (23:15)
[2023-03-08] MEDS ORDERED: NS + KCL 20 MEQ/L 1,000 ML IV ONE (03:09)
[2023-03-08] MEDS ORDERED: ANCEF VIAL 1 GRAM ONE ×2 (03:09→09:09)
[2023-03-08] MEDS ORDERED: MORPHINE SULFATE INJ 2 MG INJ ONE (04:24)
[2023-03-08] MEDS: MORPHINE SULFATE INJ 2 MG INJ IVP PRN ×2 (04:31→19:32)
[2023-03-08 05:43] LABS: BASOPHILS # (AUTO) 0.1 X10^3/uL (0.0-0.1); BASOPHILS % (AUTO) 0.7 % (0.2-1.0); EOSINOPHILS # (AUTO) 0.6 x10^3/uL (0.0-0.2); HEMATOCRIT 33.7 % (36.0-47.0); HEMOGLOBIN 11.3 g/dL (12.0-16.0); LYMPHOCYTES # (AUTO) 2.4 X10^3/uL (1.3-2.9); LYMPHOCYTES % (AUTO) 28.6 % (21.0-51.0); MEAN CORPUSCULAR HEMOGLOBIN 28.9 pg (27.0-34.0); MEAN CORPUSCULAR HGB CONC 33.6 g/dL (33.0-35.0); MEAN PLATELET VOLUME 9.2 fL (7.4-11.0); MONOCYTES # (AUTO) 0.7 x10^3/uL (0.3-0.8); MONOCYTES % (AUTO) 8.2 % (0.0-13.0); NEUTROPHILS # (AUTO) 4.7 x10^3/uL (2.2-4.8); NEUTROPHILS % (AUTO) 55.5 % (42.0-75.0); PLATELET COUNT 196 X10^3/uL (150.0-450.0); RED BLOOD COUNT 3.92 X10^6/uL (3.5-5.4); RED CELL DISTRIBUTION WIDTH 15.1 % (11.6-16.5); WHITE BLOOD COUNT 8.4 X10^3/uL (3.6-10.0)
[2023-03-08] MEDS: NS + KCL 20 MEQ/L 1,000 ML IV SCH (05:44)
[2023-03-08] MEDS: ANCEF VIAL 1 GRAM IVP SCH ×3 (05:44→21:16)
[2023-03-08 05:56] LABS: ALANINE AMINOTRANSFERASE 10 Units/L (12-78); ALBUMIN 2.7 g/dL (3.4-5.0); ALKALINE PHOSPHATASE 66 Units/L (46-116); ASPARTATE AMINO TRANSFERASE 11 Units/L (15-37); BLOOD UREA NITROGEN 10 mg/dL (7-18); CALCIUM 7.4 mg/dL (8.5-10.1); CARBON DIOXIDE 27.9 mmol/L (21-32); CHLORIDE 105 mmol/L (98-107); COR CA(FOR HYPOALB) 8.4 mg/dL (8.5-10.1); GLUCOSE 89 mg/dL (65-99); POTASSIUM 3.6 mmol/L (3.5-5.1); SODIUM 139 mmol/L (136-145); TOTAL PROTEIN 6.1 g/dL (6.4-8.2); eGFR NON BLACK RACES > 60 (>60)
[2023-03-08] MEDS ORDERED: NS + KCL 20 MEQ/L 1,000 ML IV SCH (08:00)
[2023-03-08] MEDS ORDERED: LR 1,000 ML IV 1,000 ML IV ONE ×2 (09:09→11:24)
[2023-03-08] MEDS ORDERED: NS 100 ML IV 100 ML ONE (09:09)
[2023-03-08] MEDS ORDERED: BACTROBAN TOPICAL OINT ONE (09:24)
[2023-03-08] MEDS ORDERED: FENTANYL VIAL INJ 250 mcg ONE (09:24)
[2023-03-08] MEDS ORDERED: TORADOL 30 MG VIAL ONE (09:24)
[2023-03-08] MEDS ORDERED: ZOFRAN INJ 4 MG VIAL ONE (09:24)
[2023-03-08] MEDS ORDERED: QUELICIN (OR ANECTINE) ONE (09:24)
[2023-03-08] MEDS ORDERED: ZEMURON 100 MG VIAL ONE (09:24)
[2023-03-08] MEDS ORDERED: PEPCID 20 MG VIAL ONE (09:24)
[2023-03-08] MEDS ORDERED: DIPRIVAN VIAL 20 ML ONE (09:24)
[2023-03-08] MEDS ORDERED: BRIDION ONE (09:24)
[2023-03-08] MEDS ORDERED: VERSED ONE (09:24)
[2023-03-08] MEDS ORDERED: BENADRYL INJ 50 MG VIAL IVP PRN (11:35)
[2023-03-08] MEDS ORDERED: BARHEMSYS INJ IVP PRN (11:35)
[2023-03-08] MEDS ORDERED: DILAUDID INJ ONE ×2 (11:52→12:17)
[2023-03-08] MEDS: DILAUDID INJ IVP PRN ×6 (11:54→22:12)
[2023-03-08] MEDS: D5 1/2 NS + KCL 20 MEQ/L 1,000 ML IV SCH (12:42)
[2023-03-08] MEDS ORDERED: D5 1/2 NS 1,000 ML 1,000 ML IV SCH (13:00)
[2023-03-08] MEDS ORDERED: CONSULT PHARMACY - POTASSIUM & MAGNESIUM XX SCH (19:00)
[2023-03-08] MEDS: ZOFRAN INJ 4 MG VIAL IVP PRN (19:32)
[2023-03-08] MEDS: CIPRO IV 400 MG PREMIX* 400 MG/200 ML IV.SOLN. IV SCH (20:18)
[2023-03-08] MEDS ORDERED: KLOR-CON PO ONE (21:00)
[2023-03-08] MEDS: LEVAQUIN PREMIX IV 500 MG 500 MG/100 ML BAG IV SCH (22:03)
[2023-03-09] MEDS: D5 1/2 NS + KCL 20 MEQ/L 1,000 ML IV SCH (01:42)
[2023-03-09] MEDS: MORPHINE SULFATE INJ 2 MG INJ IVP PRN ×2 (01:43→07:33)
[2023-03-09] MEDS: DILAUDID INJ IVP PRN (03:40)
[2023-03-09 04:11] VITALS: O2SAT 97
[2023-03-09] MEDS: ANCEF VIAL 1 GRAM IVP SCH (05:10)
[2023-03-09 05:30] LABS: BASOPHILS % (AUTO) 0.1 % (0.2-1.0); EOSINOPHILS # (AUTO) 0.3 x10^3/uL (0.0-0.2); EOSINOPHILS % (AUTO) 3.5 % (0.9-2.9); LYMPHOCYTES # (AUTO) 1.3 X10^3/uL (1.3-2.9); MEAN CORPUSCULAR HEMOGLOBIN 29.3 pg (27.0-34.0); MEAN CORPUSCULAR HGB CONC 34.2 g/dL (33.0-35.0); MEAN CORPUSCULAR VOLUME 85.6 fL (80.0-100.0); MEAN PLATELET VOLUME 9.7 fL (7.4-11.0); MONOCYTES # (AUTO) 0.7 x10^3/uL (0.3-0.8); MONOCYTES % (AUTO) 7.2 % (0.0-13.0); NEUTROPHILS # (AUTO) 6.9 x10^3/uL (2.2-4.8); NEUTROPHILS % (AUTO) 75.2 % (42.0-75.0); PLATELET COUNT 202 X10^3/uL (150.0-450.0); RED BLOOD COUNT 3.74 X10^6/uL (3.5-5.4); RED CELL DISTRIBUTION WIDTH 14.9 % (11.6-16.5); WHITE BLOOD COUNT 9.1 X10^3/uL (3.6-10.0)
[2023-03-09 05:32] VITALS: RESP 16
[2023-03-09 05:49] LABS: ALANINE AMINOTRANSFERASE 25 Units/L (12-78); ALBUMIN 2.7 g/dL (3.4-5.0); ALKALINE PHOSPHATASE 65 Units/L (46-116); ASPARTATE AMINO TRANSFERASE 27 Units/L (15-37); BLOOD UREA NITROGEN 6 mg/dL (7-18); CALCIUM 7.8 mg/dL (8.5-10.1); CARBON DIOXIDE 24.4 mmol/L (21-32); CHLORIDE 102 mmol/L (98-107); COR CA(FOR HYPOALB) 8.8 mg/dL (8.5-10.1); COR NA(FOR HYPERGLY) 133 mmol/L (136-145); CREATININE 0.86 mg/dL (0.55-1.02); GLUCOSE 117 mg/dL (65-99); MAGNESIUM 1.5 mg/dL (2.0-2.9); SODIUM 133 mmol/L (136-145); TOTAL PROTEIN 6.2 g/dL (6.4-8.2); eGFR NON BLACK RACES > 60 (>60)
[2023-03-09] MEDS ORDERED: CONSULT PHARMACY - POTASSIUM & MAGNESIUM XX SCH (07:00)
[2023-03-09] MEDS: ZOFRAN INJ 4 MG VIAL IVP PRN (07:33)
--- NOTE | 2023-03-09 08:15 | DR.PROGNOT ---
HOSPITAL PROGRESS NOTE Progress Note for Day of: Progress Note Date: 03/09/23 Chief Complaint Chief Complaint: moderate incisional and abdominal pain. no N,V . minimal drainage in LUIS ANGEL . CBC, LFT , Bilirubin all normal .. LUIS ANGEL was removed .. Past Medical Family Social History Allergies: Allergies iodine Allergy (Verified 10/12/18 11:09) latex Allergy (Verified 10/12/18 11:09) Vital Signs Vital Signs: Vital Signs Temperature 98.5 F Pulse Rate [Left Radial] 79 Respiratory Rate 16 Respiratory Rate 16 Respiratory Rate 16 Respiratory Rate 20 Respiratory Rate 20 Respiratory Rate 22 Respiratory Rate 22 Blood Pressure [Left Arm] 90/52 O2 Sat by Pulse Oximetry 97 Physical Exam Oriented: Normal Eyes: Normal Respiratory: Normal Cardiovascular: Normal GI:Auscultation: Other (Soft flat abdomen with moderate diffuse tenderness, bowel sounds present) Mood Description: Calm Speech Pattern: Clear and Appropriate Laboratory and Diagnostics 03/09/23 05:05 03/09/23 05:05 Labs: Laboratory WBC 9.1 X10^3/uL (3.6-10.0) 03/09/23 05:05 RBC 3.74 X10^6/uL (3.5-5.4) 03/09/23 05:05 Hgb 11.0 g/dL (12.0-16.0) L 03/09/23 05:05 Hct 32.0 % (36.0-47.0) L 03/09/23 05:05 MCV 85.6 fL (80.0-100.0) 03/09/23 05:05 MCH 29.3 pg (27.0-34.0) 03/09/23 05:05 MCHC 34.2 g/dL (33.0-35.0) 03/09/23 05:05 RDW 14.9 % (11.6-16.5) 03/09/23 05:05 Plt Count 202 X10^3/uL (150.0-450.0) 03/09/23 05:05 MPV 9.7 fL (7.4-11.0) 03/09/23 05:05 Neut % (Auto) 75.2 % (42.0-75.0) H 03/09/23 05:05 Lymph % (Auto) 14.0 % (21.0-51.0) L 03/09/23 05:05 [place] % (Auto) 7.2 % (0.0-13.0) 03/09/23 05:05 Eos % (Auto) 3.5 % (0.9-2.9) H 03/09/23 05:05 Baso % (Auto) 0.1 % (0.2-1.0) L 03/09/23 05:05 Neut # (Auto) 6.9 x10^3/uL (2.2-4.8) H 03/09/23 05:05 Lymph # (Auto) 1.3 X10^3/uL (1.3-2.9) 03/09/23 05:05 [place] # (Auto) 0.7 x10^3/uL (0.3-0.8) 03/09/23 05:05 Eos # (Auto) 0.3 x10^3/uL (0.0-0.2) H 03/09/23 05:05 Baso # (Auto) 0.0 X10^3/uL (0.0-0.1) 03/09/23 05:05 Absolute Nucleated RBC 0.0 /100WBC 03/09/23 05:05 Sodium 133 mmol/L (136-145) L 03/09/23 05:05 Corrected Sodium 133 mmol/L (136-145) L 03/09/23 05:05 Potassium 4.0 mmol/L (3.5-5.1) 03/09/23 05:05 Chloride 102 mmol/L (98-107) 03/09/23 05:05 Carbon Dioxide 24.4 mmol/L (21-32) 03/09/23 05:05 BUN 6 mg/dL (7-18) L 03/09/23 05:05 Creatinine 0.86 mg/dL (0.55-1.02) 03/09/23 05:05 Est GFR (MDRD) Af Amer > 60 (>60) 03/09/23 05:05 Est GFR (MDRD) Non-Af > 60 (>60) 03/09/23 05:05 Glucose 117 mg/dL (65-99) H 03/09/23 05:05 Calcium 7.8 mg/dL (8.5-10.1) L 03/09/23 05:05 Corrected Calcium 8.8 mg/dL (8.5-10.1) 03/09/23 05:05 Magnesium 1.5 mg/dL (2.0-2.9) L 03/09/23 05:05 Total Bilirubin 0.20 mg/dL (0.2-1.0) 03/09/23 05:05 AST 27 Units/L (15-37) 03/09/23 05:05 ALT 25 Units/L (12-78) 03/09/23 05:05 Alkaline Phosphatase 65 Units/L (46-116) 03/09/23 05:05 Total Protein 6.2 g/dL (6.4-8.2) L 03/09/23 05:05 Albumin 2.7 g/dL (3.4-5.0) L 03/09/23 05:05 Globulin 3.5 g/dL (2.5-4.5) 03/09/23 05:05 Albumin/Globulin Ratio 0.8 Ratio (1.1-2.1) L 03/09/23 05:05 Lipase 71 Units/L (73-393) L 03/07/23 20:34 Specimen Type Clean catch urine 03/07/23 20:01 Urine Color [place] (YELLOW) 03/07/23 20:01 Urine Appearance Hazy (CLEAR) 03/07/23 20: Urine pH 5.0 (5.0 - 8.0) 03/07/23 20:01 Ur Specific [place] 1.025 (1.000-1.030) 03/07/23 20:01 Urine Protein 2+ (NEGATIVE) 03/07/23 20: Urine Glucose (UA) Negative (NEGATIVE) 03/07/23 20:01 Urine Ketones 1+ (NEGATIVE) 03/07/23 20: Urine Blood 3+ (NEGATIVE) 03/07/23 20: Urine Nitrite Negative (NEGATIVE) 03/07/23 20: Urine Bilirubin 1+ (NEGATIVE) 03/07/23 20: Urine Urobilinogen 1+ (NORMAL) 03/07/23 20:01 Ur Leukocyte Esterase 1+ (NEGATIVE) 03/07/23 20:01 Urine RBC 5-10 /HPF (0-3) A 03/07/23 20: Urine WBC 3-5 /HPF (0-5) 03/07/23 20:01 Ur Squamous Epith Cells Numerous /HPF (NEGATIVE) 03/07/23 20:01 Amorphous Sediment 1+ /HPF (NEGATIVE) 03/07/23 20:01 Urine Bacteria 1+ /HPF (NEGATIVE) 03/07/23 20:01 Urine Mucus Moderate /HPF (NEGATIVE) 03/07/23 20:01 Ur Culture Indicated? No/not indicated 03/07/23 20:01 Assessment and Plan 1: Status post laparoscopic cholecystectomy, To advance diet to low-fat. Keep on Cipro for 5 more days. We will follow the patient in the office in 10 days. Problem Patient Problems: Patient Problems Acute cholecystitis (Acute) K81.0 Acute hypokalemia (Acute) E87.6 Right nephrolithiasis (Acute) N20.0
[2023-03-09] MEDS: MAG-OX TAB PO SCH ×2 (08:40→12:16)
[2023-03-09] MEDS: CIPRO IV 400 MG PREMIX* 400 MG/200 ML IV.SOLN. IV SCH (08:40)
[2023-03-09 09:43] VITALS: BP 99/56; PULSE 90; TEMP 97.8
== END 2023-03-09 13:15 | disposition home or self-care (01) ==
LOC: U 19:51 → ER 19:51 → ICU 19:51 → U 22:43
PROVIDERS: ADMIT Obstetrics & Gynecology Obstetrics; ATTEND Obstetrics & Gynecology Obstetrics
DX: K82.8 Other specified diseases of gallbladder; K82.1 Hydrops of gallbladder; R10.13 Epigastric pain; R10.10 Upper abdominal pain, unspecified; N20.0 Calculus of kidney; R11.2 Nausea with vomiting, unspecified; K80.12 Calculus of gallbladder with acute and chronic cholecystitis without obstruction; I10 Essential (primary) hypertension; E87.6 Hypokalemia

== ENCOUNTER 2024-03-05 17:08 | Observation (INO) ==
--- NOTE | 2024-03-05 17:19 | DR.SOBA ---
HPI Time Seen Time Seen by Provider: 03/05/24 17:19 Complaints Chief Complaint Doctors Comments: 39-year-old female presents with bilateral lower extremity swelling, ongoing for the past few weeks. Was seen here few days ago, sent home on Lasix. Patient states she has taken the medications, legs are remaining swollen.. She is having some anterior chest pain, sternal region, worse with breathing at times. Nothing makes it better.. Does have a degree of exertional dyspnea. Denies fever, chills, upper respiratory symptoms.. Denies bowel or bladder issues.. Patient seen by her PCP, Dr. Watt. Sent over for CTA and bilateral venous Dopplers of the lower extremities to rule out PE and DVTs. Patient with a history of iodine allergy, gets itchy with it. Reviewed Nurses Notes Reviewed: Yes Source History Provided: Patient Mode of Arrival Mode of Arrival: Wheelchair PMH PMH Past Medical History: Anxiety, Arthritis, Depression, Migraines and Headaches Past Surgical History: Yes Surgical History: Cholecystectomy, Hysterectomy and Ortho Surgery Family History Family Medical History: Diabetes Mellitus and Hypertension Social History Does patient currently use any type of tobacco product: No Do you use any recreational Drugs:: No ROS Review of Systems Constitutional: Weakness Eyes: No Symptoms Reported ENTM: No Symptoms Reported Respiratoy: Short of Breath (w/exertion) Cardiovascular: Chest Pain and Edema Gastrointestinal/Abdominal: No Symptoms Reported Genitourinary: No Symptoms Reported Neurological: No Symptoms Reported Musculoskeletal: No Symptoms Reported Integumentary: No Symptoms Reported All Other Systems: Reviewed and Negative PE Vital Signs Vitals: Vital Signs Temperature 98.2 F Pulse Rate 68 Pulse Rate 68 Pulse Rate 71 Pulse Rate 70 Pulse Rate 70 Pulse Rate 81 Pulse Rate 84 Pulse Rate 72 Respiratory Rate 31 Respiratory Rate 42 Respiratory Rate 29 Respiratory Rate 37 Respiratory Rate 44 Respiratory Rate 17 Respiratory Rate 22 Respiratory Rate 18 Blood Pressure 163/80 Blood Pressure 164/83 Blood Pressure 164/83 Blood Pressure 145/80 Blood Pressure 133/63 O2 Sat by Pulse Oximetry 100 O2 Sat by Pulse Oximetry 100 O2 Sat by Pulse Oximetry 100 O2 Sat by Pulse Oximetry 100 O2 Sat by Pulse Oximetry 100 O2 Sat by Pulse Oximetry 97 General General Appearance: Alert and In No Apparent Distress Eyes Eye exam: PERRL and EOMI ENT ENT Exam: Mucous Membranes Moist Neck Neck Exam: Normal Inspection, Full ROM and Thyromegaly; negative Tenderness Respiratory Respiratory Exam: Normal Lung Sounds Bilat; negative Accessory Muscle Use or Respiratory Distress Cardiovascular Cardiovascular Exam: Regular Rate, Normal Rhythm and Normal Heart Sounds Abdominal Exam Abdominal Exam: Normal Bowel Sounds and Soft; negative Tenderness Extremities Extremities Exam: Edema (4+ bilateral lower ext edema.) Neurologic Neurological Exam: Alert, Oriented X3 and CN II-XII Intact; negative Motor Sensory Deficit Skin Skin Exam: Warm and Dry COURSE Treatment Treatment: 39-year-old female significant edema bilateral lower extremities for the past few weeks. Having exertional dyspnea at times. W/u initiated. 1835 - 2 view chest with degree of cardiomegaly, No CHF. BNP normal as well. D-dimer slightly elevated at 0.75. 1909 -bilateral venous Doppler studies without DVTs. Patient with a history of allergy to iodine, causes it. Needs a CTA, will premedicate. Patient was given Solu-Medrol, 125 mg to start after initial evaluation. Added famotidine, 20 mg IV.. Will push Benadryl, 50 mg, prior to her CTA chest. Radiology techs protocol states they have to wait 12 hours following steroids for premedicated CTA. Discussed with her attending, Dr Watt, will admit for premedicated CT & obtain an ECHO in the am. Will start IV Lasix. ROR Labs Reviewed Laboratory Results Reviewed?: Yes 03/06/24 05:16 03/06/24 05:16 Laboratory: WBC 10.1 X10^3/uL (3.6-10.0) H 03/05/24 17:58 RBC 4.28 X10^6/uL (3.5-5.4) 03/05/24 17:58 Hgb 12.4 g/dL (12.0-16.0) 03/05/24 17:58 Hct 38.6 % (36.0-47.0) 03/05/24 17:58 MCV 90.2 fL (80.0-100.0) 03/05/24 17:58 MCH 29.0 pg (27.0-34.0) 03/05/24 17:58 MCHC 32.2 g/dL (33.0-35.0) L 03/05/24 17:58 RDW 14.8 % (11.6-16.5) 03/05/24 17:58 Plt Count 248 X10^3/uL (150.0-450.0) 03/05/24 17:58 MPV 9.1 fL (7.4-11.0) 03/05/24 17:58 Neut % (Auto) 72.0 % (42.0-75.0) 03/05/24 17:58 Lymph % (Auto) 17.3 % (21.0-51.0) L 03/05/24 17:58 [place] % (Auto) 7.6 % (0.0-13.0) 03/05/24 17:58 Eos % (Auto) 2.7 % (0.9-2.9) 03/05/24 17:58 Baso % (Auto) 0.4 % (0.2-1.0) 03/05/24 17:58 Neut # (Auto) 7.3 x10^3/uL (2.2-4.8) H 03/05/24 17:58 Lymph # (Auto) 1.7 X10^3/uL (1.3-2.9) 03/05/24 17:58 [place] # (Auto) 0.8 x10^3/uL (0.3-0.8) 03/05/24 17:58 Eos # (Auto) 0.3 x10^3/uL (0.0-0.2) H 03/05/24 17:58 Baso # (Auto) 0.0 X10^3/uL (0.0-0.1) 03/05/24 17:58 Absolute Nucleated RBC 0.0 /100WBC 03/05/24 17:58 D-Dimer 0.75 ug/ml (0.0-0.57) H 03/05/24 17:58 Sodium 138 mmol/L (136-145) 03/05/24 17:58 Corrected Sodium TNP 03/05/24 17:58 Potassium 4.0 mmol/L (3.5-5.1) 03/05/24 17:58 Chloride 101 mmol/L (98-107) 03/05/24 17:58 Carbon Dioxide 30.9 mmol/L (21-32) 03/05/24 17:58 BUN 8 mg/dL (7-18) 03/05/24 17:58 Creatinine 0.97 mg/dL (0.55-1.02) 03/05/24 17:58 Est GFR (MDRD) Af Amer > 60 (>60) 03/05/24 17:58 Est GFR (MDRD) Non-Af > 60 (>60) 03/05/24 17:58 Glucose 86 mg/dL (65-99) 03/05/24 17:58 Calcium 9.0 mg/dL (8.5-10.1) 03/05/24 17:58 Corrected Calcium TNP 03/05/24 17:58 Total Bilirubin 0.30 mg/dL (0.2-1.0) 03/05/24 17:58 AST 10 Units/L (15-37) L 03/05/24 17:58 ALT 17 Units/L (12-78) 03/05/24 17:58 Alkaline Phosphatase 84 Units/L (46-116) 03/05/24 17:58 Creatine Kinase 100 Units/L (26-192) 03/05/24 17:58 Troponin I High Sens 4.4 ng/L (4.0-60.0) 03/05/24 17:58 B-Natriuretic Peptide 19.2 pg/mL (0-79) 03/05/24 17:58 Total Protein 8.2 g/dL (6.4-8.2) 03/05/24 17:58 Albumin 3.8 g/dL (3.4-5.0) 03/05/24 17:58 Globulin 4.4 g/dL (2.5-4.5) 03/05/24 17:58 Albumin/Globulin Ratio 0.9 Ratio (1.1-2.1) L 03/05/24 17:58 TSH 3rd Generation 1.629 uIU/mL (0.358-3.74) 03/05/24 17:58 D-dimer slightly elevated. EKG Rate: 76 [place]: Normal Rhythm: NSR ST: Normal Opioid Opioid Risk Tool Age (Dayo box if 16-45): No History of Preadolescent Sexual Abuse: No Total: 0 Total Score Risk Category: Low Risk Copyright: Rocky MCHUGH predicting aberrant behaviors Discharge Plan Diagnosis Discharge Problem: Bilateral lower extremity edema, Exertional dyspnea Discharge Plan Patient Disposition: 09 ADMITTED INPATIENT Condition: Stable
[2024-03-05 17:26] VITALS: BMI 38.7
--- NOTE | 2024-03-05 17:49 | EKG ---
Test Reason : edema Blood Pressure : */* mmHG Vent. Rate : 76 BPM Atrial Rate : 76 BPM P-R Int : 158 ms QRS Dur : 74 ms QT Int : 354 ms P-R-T Axes : 9 1 26 degrees QTc Int : 398 ms Normal sinus rhythm Minimal voltage criteria for LVH, may be normal variant ( R in aVL ) Cannot rule out Anterior infarct , age undetermined Abnormal ECG When compared with ECG of 07-MAR-2023 22:17, Nonspecific T wave abnormality has replaced inverted T waves in Inferior leads T wave inversion no longer evident in Anterior leads Confirmed by Brady Zelaya MD ([id number]) on 03/06/2024 7:40:07 AM Referred By: Confirmed By: Brady Zelaya MD
[2024-03-05] MEDS: SOLU-Medrol 125 MG VIAL IVP ONE (18:15)
[2024-03-05 18:16] LABS: BASOPHILS % (AUTO) 0.4 % (0.2-1.0); EOSINOPHILS # (AUTO) 0.3 x10^3/uL (0.0-0.2); EOSINOPHILS % (AUTO) 2.7 % (0.9-2.9); HEMATOCRIT 38.6 % (36.0-47.0); HEMOGLOBIN 12.4 g/dL (12.0-16.0); LYMPHOCYTES # (AUTO) 1.7 X10^3/uL (1.3-2.9); LYMPHOCYTES % (AUTO) 17.3 % (21.0-51.0); MEAN CORPUSCULAR HGB CONC 32.2 g/dL (33.0-35.0); MEAN CORPUSCULAR VOLUME 90.2 fL (80.0-100.0); MEAN PLATELET VOLUME 9.1 fL (7.4-11.0); MONOCYTES # (AUTO) 0.8 x10^3/uL (0.3-0.8); MONOCYTES % (AUTO) 7.6 % (0.0-13.0); NEUTROPHILS # (AUTO) 7.3 x10^3/uL (2.2-4.8); PLATELET COUNT 248 X10^3/uL (150.0-450.0); RED BLOOD COUNT 4.28 X10^6/uL (3.5-5.4); RED CELL DISTRIBUTION WIDTH 14.8 % (11.6-16.5); WHITE BLOOD COUNT 10.1 X10^3/uL (3.6-10.0)
[2024-03-05 18:34] LABS: ALANINE AMINOTRANSFERASE 17 Units/L (12-78); ALBUMIN 3.8 g/dL (3.4-5.0); ALKALINE PHOSPHATASE 84 Units/L (46-116); ASPARTATE AMINO TRANSFERASE 10 Units/L (15-37); BLOOD UREA NITROGEN 8 mg/dL (7-18); CARBON DIOXIDE 30.9 mmol/L (21-32); CHLORIDE 101 mmol/L (98-107); CREATINE KINASE 100 Units/L (26-192); CREATININE 0.97 mg/dL (0.55-1.02); GLUCOSE 86 mg/dL (65-99); SODIUM 138 mmol/L (136-145); TOTAL PROTEIN 8.2 g/dL (6.4-8.2); TSH (3RD GENERATION) 1.629 uIU/mL (0.358-3.74); eGFR NON BLACK RACES > 60 (>60)
[2024-03-05] MEDS: PEPCID 20 MG VIAL IVP ONE (19:09)
--- NOTE | 2024-03-05 19:21 | VAS ---
EXAM: BILATERAL LOWER EXTREMITY VENOUS DOPPLER ULTRASOUNDHISTORY: Bilateral lower extremity edema.TECHNIQUE: The lower extremity veins were interrogated with a high-frequency linear transducer, employing grayscale imaging, duplex Doppler and color flow Doppler imaging.COMPARISON: None available.FINDINGS:RIGHT: Interrogation of the common femoral vein, superficial femoral vein, popliteal vein, and posterior tibial vein demonstrates no intraluminal filling defects, no lack of vein compressibility, or no absence of intraluminal color flow Doppler signal to suggest deep venous thrombosis. There is no evidence for luminal thrombosis of the saphenous veins to suggest superficial vein thrombosis. No popliteal lesion reminiscent of a Boyd's cyst is seen. No gross arterial aneurysm is incidentally noted.LEFT: Interrogation of the common femoral vein, superficial femoral vein, popliteal vein, and posterior tibial vein demonstrates no intraluminal filling defects, no lack of vein compressibility, or no absence of intraluminal color flow Doppler signal to suggest deep venous thrombosis. There is no evidence for luminal thrombosis of the saphenous veins to suggest superficial vein thrombosis. No popliteal lesion reminiscent of a Boyd's cyst is seen. No gross arterial aneurysm is incidentally noted.Note: DVT could be missed early in the disease when clot burden is minimal. For patients with moderate and high pretest probability of DVT and negative ultrasound, the [employer] clinical guidelines recommend testing with a d-dimer assay or repeat ultrasound in 5-7 days. If symptoms worsen, the Society of radiologists in ultrasound recommend repeating ultrasound even earlier.IMPRESSION:1. No evidence for DVT seen bilaterally.2. No abnormal fluid collection or Boyd's cyst seen bilaterally.THIS IS AN ELECTRONICALLY VERIFIED FINAL REPORT03/05/2024 7:18 PM - Electronically signed by Arya Lopez MD
[2024-03-05] MEDS: LASIX IVP ONE ×2 (21:07→23:20)
--- NOTE | 2024-03-06 01:52 | RAD ---
EXAM: CHEST, PA/LAT ADULT HISTORY: Patient states for the past couple weeks she has been having july leg swelling and pain started at the waist down that makes her sob at times.; COMPARISON: 03/01/2024 FINDINGS: The trachea is midline. The cardiac silhouette is unremarkable. Surgical clips noted in the right h ilar and mediastinal region. The lungs are clear without focal infiltrate or effusion. The bony thor ax is unremarkable. IMPRESSION: No acute cardiopulmonary disease. THIS IS AN ELECTRONICALLY VERIFIED FINAL REPORT 03/06/2024 1:49 AM - Electronically signed by Luis Aguilar MD
[2024-03-06] MEDS: SOLU-Medrol 40 MG VIAL IVP SCH (03:01)
[2024-03-06] MEDS: ULTRAM PO PRN (04:48)
[2024-03-06 05:27] LABS: BASOPHILS % (AUTO) 0.4 % (0.2-1.0); HEMATOCRIT 37.2 % (36.0-47.0); HEMOGLOBIN 12.2 g/dL (12.0-16.0); LYMPHOCYTES # (AUTO) 0.8 X10^3/uL (1.3-2.9); LYMPHOCYTES % (AUTO) 6.9 % (21.0-51.0); MEAN CORPUSCULAR HEMOGLOBIN 29.2 pg (27.0-34.0); MEAN CORPUSCULAR HGB CONC 32.9 g/dL (33.0-35.0); MEAN CORPUSCULAR VOLUME 88.9 fL (80.0-100.0); MEAN PLATELET VOLUME 9.1 fL (7.4-11.0); MONOCYTES # (AUTO) 0.1 x10^3/uL (0.3-0.8); MONOCYTES % (AUTO) 1.2 % (0.0-13.0); NEUTROPHILS # (AUTO) 10.2 x10^3/uL (2.2-4.8); NEUTROPHILS % (AUTO) 91.5 % (42.0-75.0); PLATELET COUNT 240 X10^3/uL (150.0-450.0); RED BLOOD COUNT 4.19 X10^6/uL (3.5-5.4); RED CELL DISTRIBUTION WIDTH 14.4 % (11.6-16.5); WHITE BLOOD COUNT 11.2 X10^3/uL (3.6-10.0)
[2024-03-06 05:46] LABS: ALANINE AMINOTRANSFERASE 18 Units/L (12-78); ALBUMIN 3.3 g/dL (3.4-5.0); ALKALINE PHOSPHATASE 75 Units/L (46-116); ASPARTATE AMINO TRANSFERASE 10 Units/L (15-37); BLOOD UREA NITROGEN 6 mg/dL (7-18); CALCIUM 8.7 mg/dL (8.5-10.1); CHLORIDE 98 mmol/L (98-107); COR CA(FOR HYPOALB) 9.3 mg/dL (8.5-10.1); COR NA(FOR HYPERGLY) 136 mmol/L (136-145); CREATININE 0.91 mg/dL (0.55-1.02); GLUCOSE 131 mg/dL (65-99); POTASSIUM 3.8 mmol/L (3.5-5.1); SODIUM 135 mmol/L (136-145); TOTAL PROTEIN 7.5 g/dL (6.4-8.2); eGFR NON BLACK RACES > 60 (>60)
[2024-03-06 05:55] LABS: BAND NEUTROPHILS % 3 % (0-10); PLATELET MORPHOLOGY COMMENT NORMAL (NORMAL)
[2024-03-06] MEDS: BENADRYL INJ 50 MG VIAL IVP ONE (07:02)
[2024-03-06] MEDS: BENADRYL INJ 50 MG VIAL ONE (07:03)
[2024-03-06] MEDS: CONSULT PHARMACY - POTASSIUM & MAGNESIUM XX SCH (07:04)
[2024-03-06 07:18] VITALS: BP 156/75; PULSE 74; RESP 20; TEMP 98.1; O2SAT 100
[2024-03-06] MEDS: LASIX IVP SCH (08:30)
[2024-03-06] MEDS: LASIX IVP ONE (08:34)
--- NOTE | 2024-03-06 08:46 | CT ---
EXAMINATION:CTA, CHESTHISTORY:CHEST PAIN, LOGAN LEG DINA, ELEV. D DIMER; .COMPARISON:None.TECHNIQUE:Routine axial imaging of the chest was performed. CT angiography of the chest was performed with maximum intensity projection images and volume rendered images on a workstation.. The above CT scan was done with automated exposure control and the mA and kV was adjusted to obtain quality images according to patient size. Patient premedicatedFINDINGS:Lungs: Atelectasis in the lung bases. No acute infiltrates, pulmonary nodules, interstitial changes or ground-glass opacities.Central Airways: No obstructing endobronchial lesionsPleura: Minimal trace pleural fluid bilaterally. No pneumothoraxThoracic Aorta: Tapers and enhances normally.Main Pulmonary Trunk: Normal diameter. No CT angiography evidence for acute pulmonary embolusLymph Nodes: No pathologic hilar, axillary or mediastinal adenopathyHeart/Pericardium: Cardiomegaly. No significant pericardial effusionLiver: No acute finding or focal lesion.GB/Biliary: Cholecystectomy. No dilated ductSpleen: Normal size and densityPancreas: No acute findings as visualizedAdrenal Glands: No massKidneys no hydronephrosis. Nonobstructing stone in the midpolar region of the right kidney..Abdominal Aorta: Tapers normallyRetroperitoneum: No pathologically enlarged lymph nodesBowel/Peritoneal Cavity: No acute findings as visualizedOsseous Structures: Unremarkable with no acute findings.Other: NoneIMPRESSION:No CT angiography evidence for acute pulmonary embolus or aortic dissection.Minimal trace pleural fluid in the lung bases with atelectasis. No acute infiltrates.The above CT scan was done with automated exposure control and the mA and kV was adjusted to obtain quality images according to patient sizeTHIS IS AN ELECTRONICALLY VERIFIED FINAL REPORT03/06/2024 8:43 AM - Electronically signed by Kevin Ram MD
[2024-03-06] MEDS ORDERED: LOVENOX INJ 40 MG SYR SC SCH (09:00)
== END 2024-03-06 09:33 | disposition home or self-care (01) ==
LOC: U 17:08 → ER 17:08 → U 21:28
PROVIDERS: ADMIT Obstetrics & Gynecology Obstetrics; ATTEND Obstetrics & Gynecology Obstetrics